=== PATIENT | male | born 1995 | race Caucasian/White ===

== ENCOUNTER 2018-01-22 20:21 | Emergency (ER) | payer MEDICAID ==
[~2018-01-22] VITALS: Ht 172.7 cm; Wt 77.0 kg
[2018-01-22 20:31] VITALS: BP 118/61
== END 2018-01-23 05:12 | disposition left against medical advice (07) ==
LOC: ER 20:21
DX: Z53.21 Procedure and treatment not carried out due to patient leaving prior to being seen by health care provider (principal)

== ENCOUNTER 2018-03-09 07:26 | Emergency (ER) | payer MEDICAID ==
[~2018-03-09] VITALS: Ht 170.2 cm; Wt 82.0 kg
[2018-03-09] MEDS ORDERED: HYDROCODONE/ACETAMINOPHEN 5/325MG TABLET PO ONE (09:00)
[2018-03-09] MEDS ORDERED: TETANUS, DIPHTHERIA, PERTUSSIS VAC/PF 0.5ML (>7YR OLD) IM ONE (09:00)
[2018-03-09 09:07] VITALS: BP 123/81
== END 2018-03-09 12:04 | disposition home or self-care (01) ==
LOC: ER 07:26
DX: S30.0XXA Contusion of lower back and pelvis, initial encounter (principal); Y93.55 Activity, bike riding; Y92.89 Other specified places as the place of occurrence of the external cause; V86.56XA Driver of dirt bike or motor/cross bike injured in nontraffic accident, initial encounter; Z23 Encounter for immunization; F12.90 Cannabis use, unspecified, uncomplicated
CPT/HCPCS: 72100; 72170; 90471; 90715; 99283

== ENCOUNTER 2024-11-03 18:14 | Emergency (ER) | payer MEDICAID ==
[~2024-11-03] VITALS: Ht 172.7 cm; Wt 77.0 kg
[2024-11-03 18:29] VITALS: O2SAT 97
[2024-11-03 19:16] LABS: BASOPHILS % 0.3 % (0.0-2.0); EOSINOPHILS % 0.7 % (0.0-5.0); HEMATOCRIT. 41.4 % (42.0-52.0); HEMOGLOBIN. 14.2 g/dL (14.0-18.0); LYMPHOCYTES % 7.2 % (20.0-50.0); MEAN PLATELET VOLUME 8.6 fl (7.4-10.4); MONOCYTES % 3.8 % (2.0-8.0); NEUTROPHILS % 88.0 % (40.0-76.0); PLATELET 199 x1000/uL (130-400); RED BLOOD CELL COUNT 4.27 mill/uL (4.7-6.1); RED CELL DISTRIBUTION WIDTH 13.6 % (11.6-14.6)
[2024-11-03 19:24] LABS: CREATININE 1.1 mg/dL (0.6-1.3); TROPONIN I HIGH SENSITIVITY 14 ng/L (3.0-53)
[2024-11-03 19:25] LABS: ETHANOL BLOOD < 10 mg/dL (<10); UREA NITROGEN BLOOD 21 mg/dL (9-23)
[2024-11-03 19:27] LABS: ASPARTATE AMINOTRANSFERASE 24 IU/L (<34); BILIRUBIN DIRECT < 0.1 mg/dL (<=3.0); BILIRUBIN TOTAL 0.4 mg/dL (0.1-1.0); PROTEIN TOTAL 7.1 g/dL (6.0-8.3)
[2024-11-03] MEDS: ONDANSETRON HCL 4MG/2ML INJ IV ONE (20:28)
[2024-11-03] MEDS: KETOROLAC 30MG/ML VIAL IV ONE (20:29)
[2024-11-03] MEDS: SODIUM CHLORIDE 0.9% 1,000 ML IV ONE (20:33)
[2024-11-03 21:48] LABS: CLARITY URINE CLEAR (CLEAR); COLOR URINE YELLOW (YELLOW); GLUCOSE URINE NEGATIVE (NEGATIVE); KETONES URINE TRACE (NEGATIVE); LEUKOCYTE ESTERASE URINE NEGATIVE (NEGATIVE); NITRITE URINE NEGATIVE (NEGATIVE); OCCULT BLOOD URINE NEGATIVE (NEGATIVE); PH URINE 6.0 (4.5-8.0); PROTEIN URINE NEGATIVE (NEGATIVE); SPECIFIC GRAVITY URINE 1.026 (1.005-1.030); UROBILINOGEN URINE 0.2 E.U./dL (0.2-1.0)
[2024-11-03] MEDS ORDERED: ONDA4TAB50 MT (21:55)
[2024-11-03] MEDS ORDERED: NAPR220C61 MT (21:55)
[2024-11-03 22:09] LABS: *AMPHETAMINES SCREEN URINE NEGATIVE (NEGATIVE); *BARBITURATES SCREEN URINE NEGATIVE (NEGATIVE); *BENZODIAZEPINES SCREEN URINE NEGATIVE (NEGATIVE); *COCAINE SCREEN URINE PRESUMPTIVE POSITIVE (NEGATIVE); CANNABINOID URINE SCREEN PRESUMPTIVE POSITIVE (NEGATIVE); ECSTASY MDMA SCREEN URINE NEGATIVE (NEGATIVE); METHADONE URINE SCREEN NEGATIVE (NEGATIVE); OPIATES URINE SCREEN NEGATIVE (NEGATIVE); PHENCYCLIDINE URINE SCREEN NEGATIVE (NEGATIVE)
[2024-11-03 22:12] VITALS: BP 120/78; PULSE 81; RESP 14; TEMP 36.7; O2SAT 98
== END 2024-11-03 22:19 | disposition home or self-care (01) ==
LOC: ER 18:22
DX: R53.1 Weakness (principal); F12.90 Cannabis use, unspecified, uncomplicated; E86.0 Dehydration; Z79.899 Other long term (current) drug therapy
CPT/HCPCS: 80076; 80305; 80048; 81003; 80320; 83690; 85025; 84484; 36415; 71045; 74176; 93005; 96361; 96374; 96375; 99285; J1885; J2405; J7030; G0480

== ENCOUNTER 2024-12-29 23:44 | Emergency (ER) | payer MEDICAID ==
[~2024-12-29] VITALS: Ht 172.7 cm; Wt 86.8 kg
[~2024-12-29 23:44] MED LIST: NAPR220C61 MT; ONDA4TAB50 MT
[2024-12-30 00:16] VITALS: TEMP 36.8; O2SAT 100
[2024-12-30] MEDS ORDERED: MUPI1OIN4 TP (01:19)
[2024-12-30] MEDS ORDERED: CEPH500C2 MT (01:19)
[2024-12-30 01:24] VITALS: BP 106/87; PULSE 91; RESP 18; O2SAT 99
== END 2024-12-30 01:25 | disposition home or self-care (01) ==
LOC: ER 23:44
DX: L73.9 Follicular disorder, unspecified (principal); F12.90 Cannabis use, unspecified, uncomplicated
CPT/HCPCS: 99283